=== PATIENT | male | born 1960 | race American Indian/Alaskan Native ===

== ENCOUNTER 2023-07-03 11:20 | Emergency (ER) | payer OTHER ==
[2023-07-03] MEDS ORDERED: Meclizine 25 MG Tab PO ONE (11:51)
[2023-07-03] MEDS ORDERED: Ondansetron 4 MG Tab.DIS PO ONE (11:51)
== END 2023-07-03 12:50 | disposition home or self-care (01) ==
LOC: FB.ED 11:20
DX: R42 Dizziness and giddiness (principal); F17.210 Nicotine dependence, cigarettes, uncomplicated
CPT/HCPCS: 99283; A9270; Q0162

== ENCOUNTER 2025-01-14 06:43 | Day surgery (SDC) | payer OTHER ==
[2025-01-14] MEDS ORDERED: Propofol 200 MG/20 ML SDV IV ONE (06:44)
[2025-01-14] MEDS ORDERED: Glycopyrrolate 0.2 MG/ML 5 ML MDV IV ONE (06:44)
[2025-01-14] MEDS ORDERED: Lidocaine 2% 100 MG/5 ML Syringe IVPUSH ONE (06:44)
[2025-01-14] MEDS ORDERED: Ketamine 500 mg/10 ML MDV IV ONE (06:44)
[2025-01-14] MEDS ORDERED: Midazolam 1 MG/ML 2 ML SDV IV ONE (06:44)
[2025-01-14] MEDS ORDERED: Sodium Chloride 0.9% 10 ML Syringe FLUSH PRN (07:00)
[2025-01-14] MEDS: Simethicone Drops 40 MG/0.6 ML 30 ML Bottle ONE (08:04)
[2025-01-14] MEDS: Lactated Ringers 1,000 ML IV SCH (09:25)
== END 2025-01-14 09:25 | disposition home or self-care (01) ==
LOC: FB.SDS 06:43
PROVIDERS: ATTEND Surgery
DX: Z12.11 Encounter for screening for malignant neoplasm of colon (principal); D12.6 Benign neoplasm of colon, unspecified; K57.30 Diverticulosis of large intestine without perforation or abscess without bleeding; K40.90 Unilateral inguinal hernia, without obstruction or gangrene, not specified as recurrent; I10 Essential (primary) hypertension; Z80.0 Family history of malignant neoplasm of digestive organs; Z79.899 Other long term (current) drug therapy; Z86.0101 Personal history of adenomatous and serrated colon polyps
CPT/HCPCS: 00811; 45385; 88305; A9270; J1596; J2250; J2704; J3490; J7120